=== PATIENT | female | born 2000 | race Two or more races ===

== ENCOUNTER → 2023-05-24 | Outpatient (REF) | payer OTHER ==
[~2023-05-24] MED LIST: PRENMIS3 PO
== END ==
LOC: M PLALAB 10:43
PROVIDERS: ATTEND Advanced Practice Midwife
DX: Z53.9 Procedure and treatment not carried out, unspecified reason (principal); Z34.81 Encounter for supervision of other normal pregnancy, first trimester

== ENCOUNTER → 2023-05-24 | Outpatient (CLI) | payer OTHER ==
[2023-05-24 14:07] LABS: HEMATOCRIT 34.4 % (36.0-47.0); HEMOGLOBIN 11.7 g/dl (12.0-15.5); MEAN CORPUSCULAR HEMOGLOBIN 32.6 pg (27.0-33.0); MEAN CORPUSCULAR VOLUME 95.8 fl (80.0-96.0); PLATELET COUNT, AUTOMATED 296 10^3/uL (150-450); RED BLOOD COUNT 3.59 10^6/uL (4.00-5.40); WHITE BLOOD COUNT 6.7 10^3/uL (4.0-10.0)
[2023-05-24 14:30] LABS: HIV 1&2 SCREEN NEGATIVE (NEGATIVE)
[2023-05-24 14:39] LABS: HEPATITIS C VIRUS ABY INDEX 0.04 INDEX (<0.8)
[2023-05-24 15:28] LABS: GC DNA AMPLIFICATION NEGATIVE (NEGATIVE)
== END ==
LOC: M PLALAB 11:04
PROVIDERS: ATTEND Advanced Practice Midwife
DX: Z34.81 Encounter for supervision of other normal pregnancy, first trimester (principal)

== ENCOUNTER → 2023-08-04 | Outpatient (CLI) | payer OTHER | LOC: M WHC 08:45 | PROVIDERS: ATTEND Specialist | DX: Z34.82 Encounter for supervision of other normal pregnancy, second trimester (principal) ==

== ENCOUNTER → 2023-09-01 | Outpatient (CLI) | payer OTHER ==
[2023-09-01 16:29] LABS: HEMATOCRIT 32.4 % (36.0-47.0); HEMOGLOBIN 10.7 g/dl (12.0-15.5); MEAN CORPUSCULAR HEMOGLOBIN 32.6 pg (27.0-33.0); MEAN CORPUSCULAR VOLUME 98.8 fl (80.0-96.0); PLATELET COUNT, AUTOMATED 281 10^3/uL (150-450); RED BLOOD COUNT 3.28 10^6/uL (4.00-5.40); WHITE BLOOD COUNT 7.2 10^3/uL (4.0-10.0)
== END ==
LOC: M PLALAB 11:35
PROVIDERS: ATTEND Advanced Practice Midwife
DX: O09.299 Supervision of pregnancy with other poor reproductive or obstetric history, unspecified trimester (principal)

== ENCOUNTER → 2023-10-20 | Outpatient (CLI) | payer OTHER | LOC: M RAD 10:30 | PROVIDERS: ATTEND Obstetrics & Gynecology | DX: O09.293 Supervision of pregnancy with other poor reproductive or obstetric history, third trimester (principal); Z3A.32 32 weeks gestation of pregnancy ==

== ENCOUNTER → 2023-11-17 | Outpatient (REF) | payer OTHER | LOC: M SFHCWAGY 12:21 | PROVIDERS: ATTEND Specialist | DX: Z36.85 Encounter for antenatal screening for Streptococcus B (principal); Z3A.36 36 weeks gestation of pregnancy ==

== ENCOUNTER → 2023-11-23 17:15 | Emergency (ER) | payer OTHER | END | disposition admitted as inpatient to this hospital (09) | LOC: M ED 17:15 | DX: Z53.21 Procedure and treatment not carried out due to patient leaving prior to being seen by health care provider (principal) ==

== ENCOUNTER 2023-11-23 17:17 | Outpatient (CLI) | payer OTHER ==
[~2023-11-23] VITALS: Ht 165.1 cm; Wt 80.0 kg
[2023-11-23 17:26] VITALS: BP 136/72
== END 2023-11-23 17:55 | disposition home or self-care (01) ==
LOC: M LDO 17:17
PROVIDERS: ATTEND Advanced Practice Midwife
DX: O26.853 Spotting complicating pregnancy, third trimester (principal); O43.193 Other malformation of placenta, third trimester; Z87.59 Personal history of other complications of pregnancy, childbirth and the puerperium; Z3A.36 36 weeks gestation of pregnancy
CPT/HCPCS: 59025; G0463

== ENCOUNTER 2023-12-01 08:03 | Inpatient (IN) | payer OTHER ==
[2023-12-01] VITALS (9 sets, daily range): BP systolic 121–131; BP diastolic 57–76; TEMP 98.1; O2SAT 70–99
[~2023-12-01] VITALS: Ht 165.1 cm; Wt 82.9 kg
[2023-12-01] MEDS ORDERED: HOME MED LIST COMPLETE! XX SCH (08:30)
[2023-12-01] MEDS: LACTATED RINGER'S 1000 ML IV STA (12:02)
[2023-12-01 12:05] LABS: HEMATOCRIT 33.9 % (36.0-47.0); HEMOGLOBIN 11.4 g/dl (12.0-15.5); MEAN CORPUSCULAR HEMOGLOBIN 32.4 pg (27.0-33.0); MEAN CORPUSCULAR HGB CONC 33.6 g/dl (32.0-36.5); MEAN CORPUSCULAR VOLUME 96.3 fl (80.0-96.0); PLATELET COUNT, AUTOMATED 219 10^3/uL (150-450); RED BLOOD COUNT 3.52 10^6/uL (4.00-5.40); WHITE BLOOD COUNT 9.2 10^3/uL (4.0-10.0)
[2023-12-01] MEDS: ceFAZolin SOD 2 GM in IV 1 EA IV ONE (12:25)
[2023-12-01] MEDS: BICITRA 30ML SOLN UDC PO ONE (12:25)
[2023-12-01] MEDS: LR 1,000 ML IV SCH ×2 (12:25→16:45)
[2023-12-01 13:09] LABS: HEPATITIS C VIRUS ABY INDEX 0.02 INDEX (<0.8)
[2023-12-01] MEDS ORDERED: ONDANSETRON 4MG 2ML VIAL As Ordered ONE (15:38)
[2023-12-01] MEDS ORDERED: fentaNYL 100 MCG/2 ML INJECTION As Ordered ONE (15:38)
[2023-12-01] MEDS ORDERED: OXYTOCIN INJ 10UNITS/ML 1ML VIAL As Ordered ONE (15:38)
[2023-12-01] MEDS ORDERED: ePHEDrine SULFATE 25 MG/5 ML(5MG/ML) SYRINGE As Ordered ONE (15:38)
[2023-12-01] MEDS ORDERED: MORPHINE PRES-FREE INJ 10 MG/10 ML VIAL As Ordered ONE (15:38)
[2023-12-01] MEDS ORDERED: KETOROLAC 60MG 2ML VIAL As Ordered ONE (15:50)
[2023-12-01 15:59] LABS: CORD GAS HCO3 V 23.1 MMOL/L; CORD GAS PCO2 V 49.9 mmHg; CORD GAS PH V 7.284 UNITS; CORD GAS PO2 V 32.5 mmHg; CORD GAS SBC V 20.5 MMOL/L; CORD GAS TCO2 V 24.7 MMOL/L
[2023-12-01 16:01] LABS: CORD GAS ABE A -6.6; CORD GAS HCO3 A 22.2 MMOL/L; CORD GAS O2 SAT A 58.6 %; CORD GAS PCO2 A 57.7 mmHg; CORD GAS PH A 7.203 UNITS; CORD GAS PO2 A 28.5 mmHg; CORD GAS SBC A 18.3 MMOL/L
[2023-12-01] MEDS: OXYTOCIN DRIP 30 UNITS in IV 1 EA IV PRN (16:20)
[2023-12-01] MEDS ORDERED: OXYTOCIN 30UNITS IN 0.9% NaCl 500ML IV BAG As Ordered ONE (16:20)
[2023-12-01] MEDS ORDERED: ONDANSETRON 4MG TAB PO PRN (16:45)
[2023-12-01] MEDS: OXYTOCIN DRIP 30 UNITS in IV 1 EA IV SCH (16:45)
[2023-12-01] MEDS ORDERED: RHO(D) IMMUNE GLOBULIN/MALTOSE 500MCG(2500IU)/2.2ML VIAL (WINRHO) IM SCH (16:45)
[2023-12-01] MEDS: PERCOCET 5MG/325MG TAB PO PRN ×2 (19:19→23:42)
[2023-12-01] MEDS: KETOROLAC 30 MG/ML 1ML VIAL IV SCH (22:05)
[2023-12-01] MEDS ORDERED: IBUP80TA PO (22:48)
[2023-12-01] MEDS ORDERED: COLA100C5 PO (22:48)
[2023-12-01] MEDS ORDERED: OXYC1TAB23 PO (22:49)
[2023-12-01] MEDS: DOCUSATE SODIUM 100MG CAPSULE PO PRN (23:21)
[2023-12-02 06:00] VITALS: BP 125/58; O2SAT 98
[2023-12-02 07:23] LABS: HEMATOCRIT 27.3 % (36.0-47.0); MEAN CORPUSCULAR HEMOGLOBIN 32.3 pg (27.0-33.0); MEAN CORPUSCULAR HGB CONC 34.4 g/dl (32.0-36.5); MEAN CORPUSCULAR VOLUME 93.8 fl (80.0-96.0); PLATELET COUNT, AUTOMATED 183 10^3/uL (150-450); RED BLOOD COUNT 2.91 10^6/uL (4.00-5.40); WHITE BLOOD COUNT 9.4 10^3/uL (4.0-10.0)
[2023-12-02 07:28] LABS: HEMOGLOBIN 9.4 g/dl (12.0-15.5)
[2023-12-02] MEDS: SIMETHICONE 80MG CHEW TAB PO PRN (07:55)
[2023-12-02] MEDS: PRENATAL VITAMINS CHEWABLE TABLET PO SCH (07:56)
[2023-12-02 10:00] VITALS: BP 116/53; O2SAT 100
[2023-12-02 14:00] VITALS: BP 107/59; O2SAT 99
[2023-12-02] MEDS: IBUPROFEN 800 MG TAB PO SCH (17:05)
[2023-12-02 18:00] VITALS: BP 114/68; O2SAT 99
[2023-12-02 22:00] VITALS: BP 125/55; O2SAT 97
[2023-12-03 02:00] VITALS: BP 107/51; O2SAT 97
[2023-12-03 06:00] VITALS: BP 112/58; O2SAT 98
[2023-12-03] MEDS: INFLUENZA QUADRIVALENT PF VACCINE 0.5ML SYRINGE IM.IMMUN ONE (09:00)
[2023-12-03] MEDS: MEASLES,MUMPS,RUBELLA VACCINE INJ (MMR-II) SC.IMMUN ONE (09:47)
[2023-12-03 10:00] VITALS: BP 136/62; O2SAT 97
== END 2023-12-03 16:45 | disposition home or self-care (01) | DRG 773 ==
LOC: M LDO 08:03 → M LDI 11:37 → M OBS 17:24
PROVIDERS: ADMIT Specialist; ATTEND Specialist
PROC: 10D00Z1 Extraction of Products of Conception, Low, Open Approach (ICD-10-PCS; principal; 2023-12-01 13:00)
DX: O32.1XX0 Maternal care for breech presentation, not applicable or unspecified (principal); Z3A.38 38 weeks gestation of pregnancy; O76 Abnormality in fetal heart rate and rhythm complicating labor and delivery; Z37.0 Single live birth

== ENCOUNTER 2025-03-27 18:44 | Emergency (ER) | payer OTHER ==
[~2025-03-27] VITALS: Ht 165.1 cm; Wt 64.1 kg
[~2025-03-27 18:44] MED LIST changes: +COLA100C5 PO; +IBUP80TA PO; +OXYC1TAB23 PO
[2025-03-27] MEDS: NS (Normal Saline) 0.9% 1,000 ML IV ONE (19:30)
[2025-03-27] MEDS: LIDOCAINE 2% MDV 20 ML VIAL SC ONE (20:43)
[2025-03-27] MEDS: LIDOCAINE/PRILOCAINE CREAM 5 GM TUBE TOP ONE (20:53)
[2025-03-27 20:58] LABS: BASO # 0.1 10^3/uL (0.0-0.2); BASO % 1.1 % (0.0-1.0); EOS # 0.2 10^3/uL (0.0-0.5); EOS % 2.3 % (0.0-3.0); LYMPH # 3.8 10^3/uL (1.5-5.0); LYMPH % 48.5 % (24.0-44.0); MONO # 0.6 10^3/uL (0.0-0.8); MONO % 6.9 % (2.0-8.0); NEUTROPHILS # 3.3 10^3/uL (1.5-8.5); NEUTROPHILS % 41.1 % (36.0-66.0); PLATELET COUNT, AUTOMATED 327 10^3/uL (150-450)
[2025-03-27 21:35] LABS: CALCIUM LEVEL 8.9 MG/DL (8.5-10.1); CARBON DIOXIDE LEVEL 24 MMOL/L (20-31); CHLORIDE LEVEL 105 MMOL/L (98-107); CREATININE FOR GFR 0.67 MG/DL (0.55-1.30); GLOMERULAR FILTRATION RATE > 90.0 (>60); MAGNESIUM LEVEL 2.0 MG/DL (1.8-2.4); POTASSIUM SERUM 3.8 MMOL/L (3.5-5.1); SODIUM LEVEL 140 MMOL/L (136-145)
[2025-03-27 21:37] LABS: HCG, SERUM QUALITATIVE NEGATIVE (NEGATIVE)
[2025-03-27] MEDS: MIDAZOLAM INJ 2 MG/2 ML VIAL IV STA (22:28)
[2025-03-27] MEDS ORDERED: HYDR-3713 PO (23:28)
[2025-03-27 23:30] VITALS: TEMP 98
[2025-03-27 23:59] VITALS: BP 100/53; O2SAT 99
[2025-03-28] MEDS: NEOSPORIN OINT 0.9 GM PKT TOP ONE (00:01)
[2025-03-28] MEDS: NORCO 5/325MG TABLET (HOME DOSE PACK) PO ONE (00:01)
== END 2025-03-28 00:09 | disposition home or self-care (01) ==
LOC: M ED 18:44
DX: R55 Syncope and collapse (principal); S01.81XA Laceration without foreign body of other part of head, initial encounter; R00.1 Bradycardia, unspecified; F41.9 Anxiety disorder, unspecified; F32.A Depression, unspecified; Z79.1 Long term (current) use of non-steroidal anti-inflammatories (NSAID); Y93.89 Activity, other specified; Y99.9 Unspecified external cause status; Y92.9 Unspecified place or not applicable
CPT/HCPCS: 12015; 70486; 80048; 83735; 84443; 84703; 85025; 93005; 96361; 96374; 99285; J2250